=== PATIENT | male | born 1950 | race Caucasian/White ===

== ENCOUNTER 2020-01-30 05:41 | Day surgery (SDC) ==
--- NOTE | 2020-01-09 17:22 | EKG Report ---
Test Performed on : 01/09/2020 5:13:46 PM Test Reason : PAT Blood Pressure : / mmHG Vent. Rate : 062 BPM Atrial Rate : 062 BPM P-R Int : 144 ms QRS Dur : 096 ms QT Int : 402 ms P-R-T Axes : 070 -46 052 degrees QTc Int : 408 ms Normal sinus rhythm. Left anterior fascicular block Abnormal ECG No previous ECGs available Confirmed by Shikha Polk MD ([id number]) on 01/11/2020 12:16:03 PM
[2020-01-09 17:31] LABS: URINE SOURCE CLEAN CATCH
[2020-01-09 17:46] LABS: PTT 31.8 Seconds (22.3-41.8)
[2020-01-09 17:47] LABS: HEMOGLOBIN A1C 5.7 % (4.8-6.0)
[2020-01-09 17:48] LABS: BASO# 0.04 X1000 (0.0-0.2); BASO% 0.3 % (0.0-0.8); EOS# 0.24 X1000 (0.0-0.7); HEMATOCRIT 45.9 % (42.0-52.0); HEMOGLOBIN 15.4 g/dL (14.0-18.0); IMM GRAN# 0.03 X1000 (0.0-0.04); IMM GRAN% 0.3 % (0.0-0.5); LYMPH# 2.93 X1000 (1.2-3.4); LYMPH% 24.9 % (20.5-51.1); MCH 28.7 PG (27-31); MCHC 33.6 g/dL (33-37); MCV 85.5 FL (81-99); MONO# 1.12 X1000 (0.11-0.59); MONO% 9.5 % (1.7-9.3); MPV 9.8 FL (7.4-10.4); NEUT# 7.41 X1000 (1.4-6.5); PLT 271 X1000 (130-400); RBC 5.37 XMIL (4.7-6.1); RDW 13.3 % (11.5-14.5); WBC 11.77 X1000 (4.8-10.8)
[2020-01-09 17:50] LABS: BILIRUBIN URINE NEGATIVE (NEGATIVE); BLOOD URINE NEGATIVE (NEGATIVE); COLOR YELLOW; GLUCOSE URINE NEGATIVE (NEGATIVE); KETONE URINE NEGATIVE (NEGATIVE); LEUKOCYTES URINE SMALL (NEGATIVE); NITRITE URINE NEGATIVE (NEGATIVE); PROTEIN URINE NEGATIVE (NEGATIVE); SP GRAVITY URINE 1.017; TURBIDITY URINE CLEAR (CLEAR); UROBILINOGEN URINE NORMAL (NORMAL)
[2020-01-09 17:51] LABS: INR 1.02; PROTIME 13.5 Seconds (11.0-16.0)
[2020-01-09 17:52] LABS: UR EPITHELIAL CELLS <10 /HPF (<10); URINE BACTERIA NEGATIVE /HPF; URINE RBC <10 /HPF (<10); URINE WBC 20-40 /HPF (<10)
[2020-01-09 18:04] LABS: ALBUMIN 4.1 g/dL (3.5-5.0); CALCIUM 9.4 mg/dL (8.8-10.2); CREATININE 1.2 mg/dL (0.7-1.2); POTASSIUM 4.6 mmol/L (3.5-5.1)
[2020-01-30] MEDS: KEFZOL 2 GM/D5W 2 GM/50 ML IVPB IV SCH ×2 (00:15→15:16)
[2020-01-30] MEDS ORDERED: FENTANYL ONE (06:14)
[2020-01-30] MEDS ORDERED: DIPRIVAN 1% ONE (06:14)
[2020-01-30] MEDS ORDERED: COLACE ONE (06:34)
[2020-01-30] MEDS ORDERED: PEPCID ONE (06:34)
[2020-01-30] MEDS ORDERED: REGLAN ONE (06:34)
[2020-01-30] MEDS ORDERED: KEFZOL 1 GM/D5W 2 GM/100 ML IVPB ONE (06:35)
[2020-01-30] MEDS ORDERED: LYRICA ONE (06:35)
[2020-01-30] MEDS ORDERED: LR 1,000 ML ONE (06:35)
[2020-01-30] MEDS ORDERED: CELEBREX ONE (06:35)
[2020-01-30] MEDS ORDERED: TORADOL ONE (06:41)
[2020-01-30] MEDS ORDERED: SENSORCAINE-MPF 0.5%/EPI 1:200,000 ONE (06:41)
[2020-01-30] MEDS ORDERED: DURAMORPH ONE (06:41)
[2020-01-30] MEDS ORDERED: SODIUM CHLORIDE 0.9% ONE (06:42)
[2020-01-30] MEDS ORDERED: CYKLOKAPRON 1,000 MG/NS 2,000 MG/200 ML IVPB ONE (06:42)
[2020-01-30] MEDS ORDERED: NEOSPORIN G.U. IRRIGANT ONE (06:43)
[2020-01-30] MEDS ORDERED: VANCOMYCIN ONE (06:43)
[2020-01-30] MEDS ORDERED: EXPAREL 1.3% ONE (06:43)
[2020-01-30] MEDS ORDERED: DIPRIVAN 1% 500 MG/50 ML BOTTLE ONE (06:51)
[2020-01-30] MEDS ORDERED: OFIRMEV 1000 MG/ISOTONIC SOLN 1,000 MG/100 ML BOTTLE ONE (07:16)
[2020-01-30] MEDS ORDERED: DECADRON ONE (07:16)
[2020-01-30] MEDS ORDERED: ZOFRAN ONE (07:16)
[2020-01-30] MEDS ORDERED: EPHEDRINE ONE (07:35)
[2020-01-30 08:00] LABS: URINE SOURCE CATH
[2020-01-30 08:04] LABS: BILIRUBIN URINE NEGATIVE (NEGATIVE); BLOOD URINE NEGATIVE (NEGATIVE); COLOR YELLOW; GLUCOSE URINE NEGATIVE (NEGATIVE); KETONE URINE NEGATIVE (NEGATIVE); LEUKOCYTES URINE NEGATIVE (NEGATIVE); NITRITE URINE NEGATIVE (NEGATIVE); PH URINE 5.5; PROTEIN URINE NEGATIVE (NEGATIVE); SP GRAVITY URINE 1.023; TURBIDITY URINE CLEAR (CLEAR); UROBILINOGEN URINE NORMAL (NORMAL)
[2020-01-30 08:06] LABS: UR EPITHELIAL CELLS <10 /HPF (<10); URINE BACTERIA NEGATIVE /HPF; URINE RBC <10 /HPF (<10); URINE WBC <10 /HPF (<10)
[2020-01-30] MEDS ORDERED: MORPHINE IV PRN ×3 (09:15)
[2020-01-30] MEDS ORDERED: ZOFRAN PO PRN (09:15)
[2020-01-30] MEDS ORDERED: OXY IR PO PRN ×2 (09:15)
--- NOTE | 2020-01-30 09:30 | OPERATIVE NOTE ---
PROCEDURE DATE: 01/30/2020 PREOPERATIVE DIAGNOSIS: Degenerative osteoarthritis of the right knee. POSTOPERATIVE DIAGNOSIS: Degenerative osteoarthritis of the right knee. PROCEDURE PERFORMED: Right total knee arthroplasty with DePuy Attune size 6 posterior stabilized femur, size 6 tibial tray, a 5 mm rotating platform tibial insert, and a 38 mm medialized anatomic patella. SURGEON: Dr. Carlos Adams. BUS MECHANIC: KENDRA Feliciano, who was necessary for our positioning, retraction and manipulation of the extremity during the case, and improved efficiency. SECOND BARGE MASTER: KENDRA Smyth. ANESTHESIA: Spinal. INTRAVENOUS FLUIDS: 1700 mL lactated Ringer's. ESTIMATED BLOOD LOSS: 30 mL. TOURNIQUET TIME: 85 minutes at 300 mmHg. COMPLICATIONS: None. INDICATION: The patient is a pleasant, 69-year-old male with a chronic history of worsening pain from his right knee. He has continued pain and discomfort despite appropriate nonoperative treatment. X-rays revealed degenerative osteoarthritis. Recommendation to proceed with right total knee arthroplasty was offered. Risks and benefits of surgery were explained including the risks of anesthesia, , bleeding, infection, failure to relieve pain, postop stiffness, nerve injury, blood clots, and other imponderables. All questions were answered. The patient and family wished to proceed with surgery. DETAILS OF OPERATION: The patient was taken to the operating room and placed supine on the operating table. Once adequate anesthesia was obtained, the patient's right lower extremity was subsequently prepped and draped in the usual sterile fashion. An Esmarch was used to exsanguinate the right lower extremity. The tourniquet was inflated to 300 mmHg. A standard anterior incision was made with a skin knife. Medial and lateral skin envelopes were developed. Standard medial parapatellar arthrotomy was then performed. Patella fat pad was excised. Retractor was then placed. Approximately 1 cm anterior to the PCL insertion, a starting reamer was passed. Intramedullary guide with a distal cutting block was pinned in position. Distal cut was then performed in a standard fashion. A sizing block was placed and measured size 6. Corresponding pins were placed. A size 6 cutting block was placed in position. Anterior, posterior, and chamfer cuts were then made. Attention was then turned to the proximal tibia where, using the extramedullary guide, the proximal tibia cutting block was pinned in position. Had good alignment confirmed with the alignment shawn. The proximal tibia was then resected. Medial and lateral menisci were excised. A curved osteotome was used to remove the posterior osteophytes off the distal femur. A spacer block was then placed. It had good soft tissue balance with flexion and extension. Attention was then turned to the proximal tibia. A size 6 tibial tray appeared to be the correct size. This was pinned in position. This followed by central reamer and a fin punch. A box cutting guide was pinned on the distal femur. The box cut was then performed. A trial femoral component was then placed and two lug holes were drilled. A trial tibial insert was then placed and had good soft tissue balancing. The patella was everted and resected in a standard fashion. Patella size 38 appeared to be the correct size. Corresponding holes were drilled. Trial patella component was placed and had good patellofemoral tracking. After this had been performed, the trial components were removed. Copious irrigation was performed with antibiotic pulsatile lavage while vancomycin was mixed with cement on the back table. Sequential cementing was then performed, first with the tibial tray and excess cement was removed with a Alsen, followed by the femoral component and excess cement was removed with a Alsen, followed by the trial tibial insert in full extension. Axial loading was maintained while cement cured. Patella component was cemented in a standard fashion. In a standard fashion, patella clamp was placed. While cement was curing, Exparel was placed in the deep soft tissue, as well as the subcutaneous tissue. After cement had cured, peripheral cement was removed with a small osteotome. A 5 mm rotating platform tibial insert appeared to be the correct size. The trial insert was removed. Exparel was placed in the posterior capsule. The wound was copiously irrigated. A 5 mm rotating platform tibial insert was then placed. The knee was then carried through a range of motion. It had good range of motion, good soft tissue balance, and good patellofemoral tracking. A 1/8 Hemovac drain was placed. It was not sewn in. Copious irrigation was then performed once again with antibiotic pulsatile lavage. Then #1 Vicryl was used to repair the arthrotomy, followed by 2- 0 Vicryl to repair the subcutaneous tissue, and skin toño. Adaptic, sterile 4 x 4s, Webril, cryo unit, and Jean wrap were applied to the right lower extremity. Patient tolerated the procedure well and was transferred to the recovery room in stable condition. cc: Carlos Adams MD
[2020-01-30] MEDS ORDERED: OXY IR ONE (09:40)
[2020-01-30] MEDS ORDERED: NS 1,000 ML ONE (09:40)
--- NOTE | 2020-01-30 09:56 | Diag Imaging Result Doc PS360 ---
EXAM: KNEE 1-2 VIEWS-RIGHT 01/30/2020 HISTORY: post op total knee TECHNIQUE: Right knee two views COMMENT: There is a total knee arthroplasty. There is no evidence of acute fracture or other bony abnormality. IMPRESSION: Postsurgical change. Electronically signed by Gustavo Tan 01/30/2020 9:54 AM
[2020-01-30] MEDS: NS 1,000 ML IV SCH (10:17)
[2020-01-30] MEDS: TYLENOL PO SCH ×2 (13:10→20:00)
[2020-01-30] MEDS: COLACE PO SCH (20:00)
[2020-01-31] MEDS: NS 1,000 ML IV SCH (00:30)
[2020-01-31] MEDS: TYLENOL PO SCH ×2 (03:08→09:33)
[2020-01-31] MEDS ORDERED: XARELTO PO SCH (06:00)
[2020-01-31 07:10] LABS: HEMOGLOBIN 12.7 g/dL (14.0-18.0)
[2020-01-31] MEDS ORDERED: NON-FORMULARY MED (Fluticasone/Umeclidin/Vilanter [Trelegy Ellipta 100-62.5-25] 1 PUFF) INH SCH (07:30)
--- NOTE | 2020-01-31 08:04 | ORTHOPAEDICS PROGRESS NOTE ---
DATE: 01/31/2020 SUBJECTIVE: The patient is a pleasant 69-year-old male who is 1 day status post right total knee arthroplasty. He is currently resting comfortably. PHYSICAL EXAMINATION: On physical exam, the patient's right lower extremity, his dressing is intact. His calf is soft. He has active dorsiflexion and plantar flexion. He is able to perform a straight leg raise. His labs are pending. IMPRESSION: Postoperative day number 1 status post right total knee arthroplasty. PLAN: At this point, the patient was able to ambulate well with therapy yesterday. We will discharge home today after physical therapy session. We will follow up in the office on 02/12/2020. We will arrange for home physical therapy. cc: Carlos Adams MD
[2020-01-31 08:11] LABS: AGAP 14; BUN 19 mg/dL (8-22); CALCIUM 8.6 mg/dL (8.8-10.2); CHLORIDE 100 mmol/L (98-107); COSMO 276; ESTIMATED GFR > 60; GLUCOSE 122 mg/dL (70-104); POTASSIUM 4.1 mmol/L (3.5-5.1); SODIUM 136 mmol/L (136-145); TCO2 22 mmol/L (25-35)
[2020-01-31 08:20] VITALS: BP 131/69
[2020-01-31] MEDS ORDERED: PERIDEX MT SCH (09:00)
[2020-01-31] MEDS: COLACE PO SCH (09:33)
== END 2020-01-31 10:45 | disposition home or self-care (01) ==
LOC: 4N 05:41 → OR 05:41 → 4N 16:28 → OR 01-31 10:45
PROVIDERS: ATTEND Orthopaedic Surgery Adult Reconstructive Orthopaedic Surgery